=== PATIENT | male | born 1955 | race Two or more races ===

== ENCOUNTER 2018-05-10 07:29 | Emergency (ER) | payer OTHER ==
[~2018-05-10] VITALS: Ht 172.7 cm; Wt 96.6 kg
[2018-05-10] MEDS ORDERED: SWABABLE VALVE TRANSFER SET EA MC ONE (08:03)
[2018-05-10] MEDS ORDERED: IOHEXOL 300MG/ML 100 ML INFUS..BTL ONE (08:03)
[2018-05-10] MEDS ORDERED: IV NORMAL SALINE 100 ML ONE (08:03)
[2018-05-10 08:25] LABS: BASOPHILS % (AUTO) 0.3 % (0.0-2.0); EOSINOPHILS % (AUTO) 0.1 % (0.0-7.0); HEMATOCRIT 41.4 % (36.7-47.1); HEMOGLOBIN 14.3 g/dL (12.5-16.3); LYMPHOCYTES # (AUTO) 1.6 K/uL (20.0-40.0); LYMPHOCYTES % (AUTO) 16.1 % (20.5-51.5); MEAN CORPUSCULAR HEMOGLOBIN 31.4 uug (23.8-33.4); MEAN CORPUSCULAR HGB CONC 35 g/dL (32.5-36.3); MEAN CORPUSCULAR VOLUME 90.6 fL (73.0-96.2); MONOCYTES # (AUTO) 0.5 K/uL (2.0-10.0); MONOCYTES % (AUTO) 5.4 % (0.0-11.0); NEUTROPHILS # (AUTO) 7.8 K/uL (1.8-8.9); NEUTROPHILS % (AUTO) 78.1 % (38.5-71.5); PLATELET COUNT (AUTO) 158 K/uL (152-348); RED BLOOD CELL COUNT(AUTO) 4.57 MIL/uL (4.06-5.63); WHITE BLOOD COUNT (AUTO) 9.9 K/uL (3.6-10.2)
[2018-05-10 08:30] LABS: CREATININE 1.1 mg/dL (0.6-1.3)
[2018-05-10 08:35] LABS: BILIRUBIN,TOTAL 0.6 mg/dL (0.2-1.0); TOTAL PROTEIN, SERUM 7.5 g/dL (6.4-8.2)
--- NOTE | 2018-05-10 10:26 | NUR ---
mse completed. pt had shawna bandage placed to left knee, then crutch training and despensed. pt demonstated proper crutch use. pt then had iv d/c'd intact, aci/rx x1 given. pt took all belongings.
[2018-05-10 10:28] VITALS: BP 140/92
== END 2018-05-10 10:29 | disposition home or self-care (01) ==
LOC: ER 07:29
DX: M71.22 Synovial cyst of popliteal space [Baker], left knee (principal); M17.12 Unilateral primary osteoarthritis, left knee
CPT/HCPCS: 36415; 85025; 86140; A4663; J3490; Q9967

== ENCOUNTER 2021-04-18 12:54 | Emergency (ER) | payer BC ==
[~2021-04-18] VITALS: Ht 170.2 cm; Wt 101.2 kg
--- NOTE | 2021-04-18 13:14 | NUR ---
Patient discharged to home in stable condition. Written and verbal after care instructions given. Patient verbalizes understanding of instructions. Stressed follow up or return to ER for worsening s/s.pt walks in steady gait.
== END 2021-04-18 13:18 | disposition home or self-care (01) ==
LOC: ER 12:54
DX: S09.90XA Unspecified injury of head, initial encounter (principal); R51.9 Headache, unspecified; W22.8XXA Striking against or struck by other objects, initial encounter; Y92.89 Other specified places as the place of occurrence of the external cause; E66.9 Obesity, unspecified; Z68.34 Body mass index [BMI] 34.0-34.9, adult
CPT/HCPCS: A4663